=== PATIENT | female | born 1975 | race Caucasian/White ===

== ENCOUNTER 2017-11-07 12:01 | Emergency (ER) | payer MEDICAID ==
[~2017-11-07] VITALS: Ht 154.9 cm; Wt 78.5 kg
[2017-11-07 12:05] VITALS: BP 104/77
[2017-11-07] MEDS ORDERED: IBUPROFEN 600 MG TABLET PO ONE ×2 (12:45→13:00)
== END 2017-11-07 12:49 | disposition home or self-care (01) ==
LOC: ER 12:03
DX: S02.2XXA Fracture of nasal bones, initial encounter for closed fracture (principal); S01.21XA Laceration without foreign body of nose, initial encounter; W01.0XXA Fall on same level from slipping, tripping and stumbling without subsequent striking against object, initial encounter; Y93.89 Activity, other specified; Y92.89 Other specified places as the place of occurrence of the external cause; Y99.8 Other external cause status; Z88.0 Allergy status to penicillin; Z88.2 Allergy status to sulfonamides
CPT/HCPCS: A4606; A6402; Z7610